=== PATIENT | female | born 1980 | race Caucasian/White ===

== ENCOUNTER 2017-07-30 17:17 | Emergency (ER) | payer OTHER ==
[~2017-07-30] VITALS: Ht 157.5 cm; Wt 79.4 kg
[~2017-07-30 17:17] MED LIST: ACETAMINOPHEN-1 EAC1 PO; BUTALBITAL-APA1 EAC1 PO; CLEOCIN HCL300 MG PO; CYCLOBENZAPRINE5 MG PO; ERY-TAB500 MG PO; FLEXERIL PO; IBUPROFEN 800800 MG PO; MOBIC7.5 M1 PO; MOBIC7.5 MG PO; NOHOMEMEDICATIONS; NORCO 5-325 TA1 EAC1 PO; NORCO 5-325 TA1 EACH PO; PRENATE PLUS T1 EACH PO; PROMETHAZINE12.5 M1 PO; ULTRAM 50MG TAB50 MG PO; XANAX 0.5 MG0.5 MG PO; ZANAFLEX2 MG PO; ZOFRAN ODT4 MG PO
[2017-07-30 17:51] LABS: URINE BILIRUBIN NEGATIVE (Negative); URINE BLOOD NEGATIVE (Negative); URINE CLARITY CLEAR; URINE COLOR YELLOW; URINE GLUCOSE-RANDOM NEGATIVE (Negative); URINE KETONES NEGATIVE (Negative); URINE LEUKOCYTES-REFLEX NEGATIVE (Negative); URINE NITRITE-REFLEX NEGATIVE (Negative); URINE PROTEIN NEGATIVE (Negative); URINE UROBILINOGEN 0.2 E.U./dl (0.2-1.0)
[2017-07-30 18:01] LABS: ABSOLUTE BASOPHILS 0.1 thou/uL (0.0-0.2); ABSOLUTE EOSINOPHILS 0.1 thou/uL (0.0-0.7); ABSOLUTE LYMPHOCYTES 2.7 thou/uL (0.8-5.3); ABSOLUTE MONOCYTES 0.7 thou/uL (0.0-1.2); ABSOLUTE NEUTROPHILS 8.4 thou/uL (1.6-8.1); BASOPHILS 0.6 %; EOSINOPHILS 1.1 %; HEMATOCRIT 37.5 % (37.0-47.0); HEMOGLOBIN 12.8 gm/dL (12.0-15.0); LYMPHOCYTES 22.3 %; MCH 30.6 pg (26.0-34.0); MCHC 34.1 g/dL (28.0-37.0); MCV 89.5 fL (80.0-100.0); MONOCYTES 5.6 %; MPV 7.7 fl. (7.2-11.1); NUCLEATED RBCS 0 /100WBC; PLATELET COUNT* 243 thou/uL (150-400); POLYS 70.4 %; RBC 4.19 mil/uL (4.20-5.00); RDW-CV 13.3 % (10.5-14.5)
[2017-07-30 18:14] LABS: CALCIUM 8.7 mg/dL (8.5-10.1); CREATININE 0.9 mg/dL (0.6-1.3); POTASSIUM 3.8 mmol/L (3.5-5.1)
[2017-07-30 18:19] LABS: ALBUMIN 3.3 g/dL (3.4-5.0); TOTAL BILIRUBIN 0.2 mg/dL (<0.1-1.0); TOTAL PROTEIN 6.8 g/dL (6.4-8.2)
[2017-07-30] MEDS ORDERED: FLOMAX0.4 MG PO (19:50)
[2017-07-30] MEDS ORDERED: NORCO 5-325 TA1 EACH PO (19:50)
[2017-07-30] MEDS ORDERED: ZOFRAN4 MG PO (19:50)
[2017-07-30 20:40] VITALS: BP 130/76
== END 2017-07-30 20:42 | disposition home or self-care (01) ==
LOC: M.ERS 17:17
PROVIDERS: Nurse Practitioner Family
DX: N20.1 Calculus of ureter (principal); T83.32XA Displacement of intrauterine contraceptive device, initial encounter; F17.200 Nicotine dependence, unspecified, uncomplicated; Z85.3 Personal history of malignant neoplasm of breast; Z91.040 Latex allergy status; Z88.0 Allergy status to penicillin; Z88.8 Allergy status to other drugs, medicaments and biological substances; Y84.9 Medical procedure, unspecified as the cause of abnormal reaction of the patient, or of later complication, without mention of misadventure at the time of the procedure; Y92.89 Other specified places as the place of occurrence of the external cause

== ENCOUNTER 2019-09-28 08:56 | Emergency (ER) | payer OTHER ==
[~2019-09-28] VITALS: Ht 160 cm; Wt 68.0 kg
[~2019-09-28 08:56] MED LIST changes: +FLOMAX0.4 MG PO; +ZOFRAN4 MG PO
[2019-09-28] MEDS ORDERED: XANAX1 MG PO (09:16)
[2019-09-28] MEDS ORDERED: PROZAC20 MG PO (09:16)
[2019-09-28 09:17] LABS: URINE BILIRUBIN NEGATIVE (Negative); URINE BLOOD NEGATIVE (Negative); URINE CLARITY CLEAR; URINE COLOR YELLOW; URINE GLUCOSE-RANDOM NEGATIVE (Negative); URINE KETONES NEGATIVE (Negative); URINE LEUKOCYTES-REFLEX NEGATIVE (Negative); URINE NITRITE-REFLEX NEGATIVE (Negative); URINE PROTEIN NEGATIVE (Negative); URINE UROBILINOGEN 0.2 E.U./dl (0.2-1.0)
[2019-09-28] MEDS ORDERED: REMERON15 M2 PO (09:17)
[2019-09-28 09:44] LABS: ABSOLUTE BASOPHILS 0.1 thou/uL (0.0-0.2); ABSOLUTE EOSINOPHILS 0.1 thou/uL (0.0-0.7); ABSOLUTE LYMPHOCYTES 2.1 thou/uL (0.8-5.3); ABSOLUTE MONOCYTES 0.7 thou/uL (0.0-1.2); ABSOLUTE NEUTROPHILS 6.9 thou/uL (1.6-8.1); BASOPHILS 0.6 %; EOSINOPHILS 0.9 %; HEMATOCRIT 39.4 % (37.0-47.0); HEMOGLOBIN 13.5 gm/dL (12.0-15.0); LYMPHOCYTES 21.4 %; MCH 31.4 pg (26.0-34.0); MCHC 34.2 g/dL (28.0-37.0); MCV 91.9 fL (80.0-100.0); MONOCYTES 7.1 %; MPV 8.2 fl. (7.2-11.1); NUCLEATED RBCS 0 /100WBC; PLATELET COUNT* 216 thou/uL (150-400); RBC 4.29 mil/uL (4.20-5.00); RDW-CV 13.8 % (10.5-14.5); WBC 9.9 thou/uL (4.0-11.0)
[2019-09-28 10:12] LABS: CALCIUM 8.3 mg/dL (8.5-10.1); CREATININE 0.8 mg/dL (0.6-1.3); POTASSIUM 3.6 mmol/L (3.5-5.1)
[2019-09-28 10:16] LABS: ALBUMIN 3.4 g/dL (3.4-5.0); TOTAL BILIRUBIN 0.6 mg/dL (<0.1-1.0); TOTAL PROTEIN 6.6 g/dL (6.4-8.2)
[2019-09-28] MEDS ORDERED: NORCO 5-325 TA1 EAC1 PO (12:24)
[2019-09-28 12:38] VITALS: BP 112/44
== END 2019-09-28 12:39 | disposition home or self-care (01) ==
LOC: M.ERS 08:56
PROVIDERS: Family Medicine
DX: N83.201 Unspecified ovarian cyst, right side (principal); Z91.040 Latex allergy status; Z88.0 Allergy status to penicillin; Z88.8 Allergy status to other drugs, medicaments and biological substances; Z79.899 Other long term (current) drug therapy; Z85.3 Personal history of malignant neoplasm of breast

== ENCOUNTER 2020-09-11 16:22 | Emergency (ER) | payer OTHER ==
[~2020-09-11] VITALS: Ht 160 cm; Wt 63.5 kg
[~2020-09-11 16:22] MED LIST changes: +PROZAC20 MG PO; +REMERON15 M2 PO; +XANAX1 MG PO
[2020-09-11] MEDS ORDERED: CLEOCIN HCL300 MG PO ×2 (16:48)
[2020-09-11 16:57] VITALS: BP 121/70
== END 2020-09-11 16:58 | disposition home or self-care (01) ==
LOC: M.ERS 16:22
DX: K08.89 Other specified disorders of teeth and supporting structures (principal); Z91.040 Latex allergy status; Z88.0 Allergy status to penicillin; Z88.8 Allergy status to other drugs, medicaments and biological substances; Z79.899 Other long term (current) drug therapy; Z85.3 Personal history of malignant neoplasm of breast